=== PATIENT | female | born 1950 | race Caucasian/White ===

== ENCOUNTER 2018-01-13 15:07 | Emergency (ER) | payer BC ==
[2018-01-13 15:37] VITALS: BP 157/71
[2018-01-13] MEDS ORDERED: Fluorescein Sod TOPICAL 0.6* 0.6 MG TEST OPHTHALMIC ONE (16:06)
--- NOTE | 2018-01-13 16:29 | UC ---
Eye Complaint HPI - HPI Summary HPI Summary: Patient is a 67-year-old female with a history of cataract surgery who presents to the with chief complaint of right eye irritation, redness, pain and slightly blurry vision. She states she had a stye in the lower lid approximately one week ago which popped and since that time has been experiencing these symptoms. Symptoms are aggravated with opening and closing the eye, relieved with nothing. She states the symptoms also have worsened with [id number] eyedrops. Denies any pain around the eye. Denies any purulent or clear drainage from the eye. Denies itching. - History of Current Complaint Chief Complaint: UCEye Stated Complaint: EYE IRRITATION Time Seen by Provider: 01/13/18 15:41 Hx Obtained From: Patient ?: No Onset/Duration: Sudden Onset Timing: Constant Severity Initially: Moderate Severity Currently: Moderate Pain Intensity: 8 Pain Scale Used: 0-10 Numeric Location of Injury: Conjunctiva, Eye Lid (lower), Sclera Character: Dull Aggravating Factor(s): Nothing Alleviating Factor(s): Nothing Associated Signs And Symptoms: Positive: Photophobia - Risk Factors Penetrating Injury Risk Factor: Negative Globe Rupture Risk Factors: Negative Acute Glaucoma Risk Factors: Eye Inflammation Optic Artery Occlusion Risk Factors: Negative - Allergies/Home Medications Allergies/Adverse Reactions: Allergies Allergy/AdvReac Type Severity Reaction Status Date / Time bee venom protein (honey bee) Allergy Swelling Verified 01/13/18 15:27 meperidine Allergy Palpitation Verified 01/13/18 15:27 s PMH/Surg Hx/FS Hx/Imm Hx Previously Healthy: Yes - Surgical History Surgical History: Unable to Obtain/Confirm Surgery Procedure, Year, and Place: Ovarian cyst removal. C sections x4. Teeth removal - Family History Known Family History: Positive: Unknown - Social History Occupation: Employed Full-time Lives: With Family Alcohol Use: None Substance Use Type: None Smoking Status (MU): Current Some Day Smoker Type: Cigarettes Amount Used/How Often: 2/day Review of Systems Constitutional: Negative Eyes: Blurred Vision, Eye Redness, Photophobia ENT: Negative Respiratory: Negative Cardiovascular: Negative Motor: Negative Neurovascular: Negative Neurological: Negative Psychological: Negative Is Patient Immunocompromised?: No All Other Systems Reviewed And Are Negative: Yes Physical Exam Triage Information Reviewed: Yes Appearance: Well-Appearing, Well-Nourished Vital Signs: Initial Vital Signs Temp 98.1 F 01/13/18 15:29 Pulse 66 01/13/18 15:29 Resp 18 01/13/18 15:29 BP 157/71 01/13/18 15:29 Pulse Ox 100 01/13/18 15:29 Vital Signs Reviewed: Yes Eyes: Positive: Conjunctiva Inflamed, Other: - no discharge per patient; small corneal ulcer on uptake at 5 o'clock Neck exam: Normal Neck: Positive: Supple Respiratory Exam: Normal Respiratory: Positive: Chest non-tender Cardiovascular Exam: Normal Cardiovascular: Positive: RRR Musculoskeletal Exam: Normal Musculoskeletal: Positive: Strength Intact Neurological Exam: Normal Neurological: Positive: Alert Psychological: Positive: Normal Response To Family Skin Exam: Normal Eye Complaint Course/Dx - Course Course Of Treatment: patient is evaluated for possible corneal ulcer versus corneal abrasion versus conjunctivitis. On evaluation, the sclera is injected. She complains of pain. Fluorescein uptake reveals a small uptake at 5:00 resembling a corneal ulcer. There does not appear to be any abrasion. Called Megan's office and Dr. Glenda Sheriff is able to see patient today at 6:15p. I have set up an appt for her at that time. She is given polymyxin drops here in the UC and drops are prescribed as well. She will follow up as scheduled. I have asked Dr. Conway also to assess the patient and agrees with these findings and plan. - Differential Dx/Diagnosis Differential Diagnosis/HQI/PQRI: Corneal Abrasion, Keratitis, Uveitis Provider Diagnoses: Corneal Ulcer Discharge - Sign-Out/Discharge Documenting (check all that apply): Discharge - Discharge Plan Condition: Stable Disposition: HOME Prescriptions: Polymyx/Trimethoprim OPTH* [Polytrim OPHTH*] 1 drop BOTH EYES Q2H #1 btl Patient Education Materials: Corneal Ulcer (ED) Forms: *Work Release Referrals: Glenda Sheriff MD [Medical Doctor] - No Primary Care Phys,NOPCP [Primary Care Provider] - Additional Instructions: Please follow up with Dr. Sheriff today at 6:15pm. Antibiotics drops - every 2 hours or follow the instructions which Dr. Sheriff will give you - Billing Disposition and Condition Condition: STABLE Disposition: HOME
[2018-01-13] MEDS ORDERED: Polymyx/Trimethoprim OPTH* 10 ML BTL RIGHT EYE ONE (16:33)
== END 2018-01-13 16:43 | disposition home or self-care (01) ==
LOC: UCEAST 15:07
DX: H16.001 Unspecified corneal ulcer, right eye (principal); Z98.49 Cataract extraction status, unspecified eye; Z88.8 Allergy status to other drugs, medicaments and biological substances; Z91.030 Bee allergy status; Z72.0 Tobacco use
CPT/HCPCS: 99212; G0463

== ENCOUNTER 2019-03-09 05:37 | Day surgery (SDC) | payer BC, MEDICARE ==
[~2019-03-09 05:37] MED LIST: Buffered Lidocaine 1% SYRIN* 1 ML/SYRINGE INTRADERM ONE
[2019-03-09] MEDS ORDERED: Famotidine IV* 10 MG/ML 2 ML (20 mg) IV ONE (06:00)
[2019-03-09] MEDS ORDERED: Lactated Ringers 1000 ML Bag* 1,000 ML IV SCH (06:00)
[2019-03-09] MEDS ORDERED: Buffered Lidocaine 1% SYRIN* 1 ML/SYRINGE INTRADERM ONE (06:37)
[2019-03-09] MEDS ORDERED: Famotidine IV* 10 MG/ML 2 ML (20 mg) ONE (06:37)
[2019-03-09] MEDS ORDERED: Acetic Acid 0.25%* 250 ML BTL ONE (07:03)
[2019-03-09] MEDS ORDERED: Lidocain 1% EPI 1:100,000 * 30 ML MDV ONE (07:04)
[2019-03-09 07:05] LABS: INR 1.14 (0.82-1.09)
[2019-03-09] MEDS ORDERED: Iodine Strong (LUGOL'S)* 14 ML BTL ONE (07:17)
[2019-03-09] MEDS ORDERED: Midazolam* 1 MG/ML 5 ML VIAL (5 MG) ONE (07:32)
[2019-03-09] MEDS ORDERED: fentaNYL* 50 MCG/ML 2 ML VIAL (100 MCG VIAL) ONE (07:38)
[2019-03-09] MEDS ORDERED: Ondansetron INJ* 2 MG/ML VIAL ONE (07:39)
[2019-03-09] MEDS ORDERED: Dexamethasone IV* 4 MG/ML 1 ML (4 MG) ONE (07:39)
[2019-03-09] MEDS ORDERED: Propofol* 10 MG/ML 20 ML BTL ONE (07:39)
[2019-03-09] MEDS ORDERED: Ketorolac INJ* 30 MG/ML 1 ML VIAL ONE (07:39)
[2019-03-09] MEDS ORDERED: Naloxone* 0.4 MG/ML 1 ML VIAL IV PRN (07:56)
[2019-03-09] MEDS ORDERED: DiMENhydriNATE IV* 50 MG/ML VIAL IV PUSH PRN (07:56)
[2019-03-09] MEDS ORDERED: Acetaminophen TAB* 325 MG PO PRN (07:56)
[2019-03-09] MEDS ORDERED: Silver Nitrate/Potassium Nitr* 1 EA STICK ONE (07:57)
[2019-03-09 09:20] VITALS: BP 135/58
--- NOTE | 2019-03-09 12:11 | OP ---
OPERATIVE REPORT: DATE OF OPERATION: 03/09/19 - [facility] DATE OF : 50 SURGEON: Michelle Dickson MD. ANESTHESIA: General. ANESTHESIOLOGIST: Dr. Kidd. PRE-OP DIAGNOSIS: Cervical low-grade dysplasia with positive HPV. POST-OP DIAGNOSIS: Cervical low-grade dysplasia with positive HPV. OPERATIVE PROCEDURE: Pap smear and colposcopy with ECC. ESTIMATED BLOOD LOSS: None. URINE OUTPUT: 100 cc. IV FLUIDS: 600 cc lactated Ringer's. MATERIALS TO LAB: Thin prep Pap smear and endocervical curettage. INDICATIONS: This patient was a 68-year-old 5, para 4 who reports a history of cervical cancer in her 20s, which was treated with only chemical treatment. I suspect she had high-grade dysplasia, which did resolve. The patient had since had no abnormal Pap smears. Primary care provider performed a Pap smear last month, which returned with LSIL and positive HPV. The Pap was extremely painful for the patient due to vaginal atrophy and a narrow introitus and she declined an office colposcopy and insisted on having this in the operating room. She was extensively counseled and consent was signed. Preoperative clearance was also received from the primary care physician. FINDINGS: Cervix with no visible acetowhite epithelium with acetic acid treatment. There were also no visible lesions with Lugol's. COMPLICATIONS: None. DESCRIPTION OF PROCEDURE: The risks, benefits, and alternatives were described with the patient and informed consent was obtained. The patient was taken to the operating room with IV running where general anesthesia was induced and found to be adequate. The patient was draped in the high lithotomy position in Issa stirrups. A timeout was performed. The bladder was emptied. A Beni speculum was then placed into the vagina and the cervix was well visualized. A pap smear was collected. Acetic acid was applied to the cervix and left in place for about 2-3 minutes. A colposcopy was then performed and no visible acetowhite epithelium was present. Lugol's solution was then applied to the cervix and again there were no visible lesions. At this time, an ECC was performed using a brush device. There was no bleeding from the cervix at that time. The speculum was removed and the patient was returned to supine position. The patient tolerated the procedure well. Sponge, lap, and needle counts were correct x2. [id number]/[facility] #: [id number] [facility]
== END 2019-03-09 09:10 | disposition home or self-care (01) ==
LOC: OR 05:37 → EEVIPCON 05:37 → OR 09:10
PROVIDERS: ATTEND Obstetrics & Gynecology
DX: R87.612 Low grade squamous intraepithelial lesion on cytologic smear of cervix (LGSIL) (principal); N95.2 Postmenopausal atrophic vaginitis; F17.210 Nicotine dependence, cigarettes, uncomplicated; I10 Essential (primary) hypertension; R00.2 Palpitations; J43.9 Emphysema, unspecified; K21.9 Gastro-esophageal reflux disease without esophagitis; R73.03 Prediabetes; I45.10 Unspecified right bundle-branch block; Z73.3 Stress, not elsewhere classified; R06.00 Dyspnea, unspecified; R07.9 Chest pain, unspecified; R94.31 Abnormal electrocardiogram [ECG] [EKG]; Z85.41 Personal history of malignant neoplasm of cervix uteri; M81.0 Age-related osteoporosis without current pathological fracture
CPT/HCPCS: 36415; 85610; 87624; 88175; 88305; A9270-GY; G0145; J1100; J1885; J2250; J2405; J2704; J3010